=== PATIENT | male | born 1995 | race Hispanic/Latino ===

== ENCOUNTER 2022-10-04 20:19 | Emergency (ER) | payer OTHER ==
[~2022-10-04] VITALS: Ht 162.6 cm; Wt 68.0 kg
[2022-10-04 20:58] LABS: BASOPHILS % (AUTO) 0.4 % (0.0-5.0); EOSINOPHILS % (AUTO) 1.5 % (0.0-8.0); HEMATOCRIT 43.2 % (42-54); LYMPHOCYTES % (AUTO) 23.3 % (21.0-51.0); MEAN CORPUSCULAR HEMOGLOBIN 28.7 pg (27.0-33.0); MEAN CORPUSCULAR HGB CONC 34.5 g/dL (32.0-36.0); MEAN CORPUSCULAR VOLUME 83.1 fL (79-99); MONOCYTES % (AUTO) 5.8 % (3.0-13.0); NEUTROPHILS % (AUTO) 68.7 % (40.0-77.0); PLATELET COUNT (AUTO) 255 K/uL (130-400); RED CELL DISTRIBUTION WIDTH 12.8 % (11.0-15.5); WHITE BLOOD COUNT (AUTO) 10.2 K/uL (4.8-10.8)
[2022-10-04 20:59] LABS: APPEARANCE,URINE CLEAR (CLEAR); BILIRUBIN,URINE NEGATIVE (NEGATIVE); COLOR,URINE LIGHT-YELLOW (YELLOW); GLUCOSE, URINE (UA) NEGATIVE (NEGATIVE); KETONES,URINE NEGATIVE (NEGATIVE); LEUKOCYTE ESTERASE ,URINE NEGATIVE Leu/uL (NEGATIVE); NITRATE,URINE NEGATIVE (NEGATIVE); OCCULT BLOOD,URINE NEGATIVE (NEGATIVE); PH,URINE 6.5 (5.0-8.0); PROTEIN,URINE 20 mg/dL (NEGATIVE)
[2022-10-04 21:01] LABS: MUCUS,URINE RARE LPF (None Seen); RBC,URINE 0-1 /HPF (0-1); WBC,URINE 0-1 /HPF (0-1)
[2022-10-04 21:08] LABS: CREATININE 1.1 mg/dL (0.5-1.5); POTASSIUM 3.7 mmol/L (3.5-5.1)
[2022-10-04 21:13] LABS: ALBUMIN 4.4 g/dL (3.5-5.0); TOTAL PROTEIN, SERUM 7.8 g/dL (6.0-8.3)
[2022-10-04 22:31] VITALS: BP 117/63
== END 2022-10-04 23:11 | disposition home or self-care (01) ==
LOC: EDH 20:19
DX: K29.70 Gastritis, unspecified, without bleeding (principal)
CPT/HCPCS: 36415; 80053; 81001; 83690; 85025

== ENCOUNTER 2025-01-11 10:19 | Emergency (ER) | payer BC, OTHER ==
[~2025-01-11] VITALS: Ht 167.6 cm; Wt 59.0 kg
[~2025-01-11 10:19] MED LIST: CETI10TA87 PO; METH4TAB15 PO
[2025-01-11 11:02] LABS: BILIRUBIN,URINE NEGATIVE (NEGATIVE); COLOR,URINE YELLOW (YELLOW); GLUCOSE, URINE (UA) NEGATIVE (NEGATIVE); KETONES,URINE NEGATIVE (NEGATIVE); LEUKOCYTE ESTERASE ,URINE 500 Leu/uL (NEGATIVE); NITRATE,URINE NEGATIVE (NEGATIVE); OCCULT BLOOD,URINE SMALL (NEGATIVE); PROTEIN,URINE 70 mg/dL (NEGATIVE)
[2025-01-11 11:14] LABS: APPEARANCE,URINE CLOUDY (CLEAR)
[2025-01-11 11:15] LABS: ADD UA MICROSCOPIC YES
[2025-01-11 11:16] LABS: BACTERIA,URINE FEW /HPF (None Seen); MUCUS,URINE RARE LPF (None Seen); RBC,URINE 26-50 /HPF (0-1); WBC,URINE TNTC /HPF (0-1)
[2025-01-11] MEDS ORDERED: DOXY100C5 PO (11:29)
--- NOTE | 2025-01-11 11:29 | ERN ---
ED Note History of Present Illness Stated Complaint: DYSURIA, FREQUENCY Chief Complaint: Painful Urination Time Seen by MD: 10:36 Dictation: 29-year-old male presents to the ED for evaluation of dysuria onset three days ago. Patient reports urinary frequency, but denies any fever, back pain or any other associated symptoms at this time. Patient is concerned for an STD. Allergies: Coded Allergies: No Known Drug Allergies (Unverified Allergy, Unknown, 10/04/22) Home Meds Active Scripts Doxycycline Hyclate (Doxycycline Hyclate) 100 Mg Capsule, 1 CAP PO BID for 10 Days, #20 CAP 0 Refills Prov:GRACE HERNANDEZ MD 01/11/25 Methylprednisolone (Methylprednisolone) 4 Mg Tab.ds.pk, 4 MG PO DAILY, #1 PACK as per dose pack instructions Prov:SAHRA OG 08/14/23 Cetirizine HCl (Cetirizine HCl) 10 Mg Tab.chew, 10 MG PO DAILY for 7 Days, #7 TAB.CHEW 1 Refill Prov:SAHRA OG 08/14/23 Past Medical History Past Medical History: No Pertinent History Surgical History: None Review of System Dictation Constitutional: Negative for fever,chills, and weight loss Eyes: Negative for injury, pain,redness, and discharge ENT: Negative for injury,pain or swelling Cardiovascular: Negative for chest pain, palpitations, and edema Respiratory: Negative for shortness of breath, cough, and wheezing, Abdomen/GI: Negative for abdominal pain, nausea, vomiting, diarrhea, and constipation Back: Negative for injury and pain : positive for dysuria, urinary frequency MS/Extremity: Negative for injury and deformity Skin: Negative for rash, and discoloration Neuro: Negative for headache, weakness, numbness, tingling, and seizure Psych: Negative for suicide ideation, homicidal ideation, and hallucinations Initial Vital Sign VS Vital Signs Date Time Temp Pulse Resp B/P (MAP) Pulse Ox O2 Delivery O2 Flow Rate FiO2 01/11/25 10:20 97.9 84 16 140/81 100 Room Air 0 Physical Exam Dictation General: awake, alert, NAD Head/Face: Normocephalic, atraumatic Eyes: PERRL, EOMI, vision at baseline ENT: oral cavity clear, TMs clear, no signs of infection Neck: Trachea midline, supple, no nuchal rigidity Cardiovascular: RRR, normal S1/S2, No MRGs, no JVD Respiratory: CTAB, no respiratory distress, No rales or wheezes Abdomen: Soft, non-tender, non-distended, normal bowel sounds, no guarding or rebound. Skin: Warm, dry, normal turgor, no rash MS/Extremity: Pulses equal, no cyanosis, neurovascular intact, FROM Neuro: COAx4, GCS 15, strength 5/5, CN 2-12 intact, normal cerebellar exam, normal gait, Psych: Normal behavior, mood, and affect normal Results (Laboratory/Radiology) Laboratory/Radiology Laboratory Tests Test 01/11/25 10:35 Urine Color YELLOW (YELLOW) Urine Appearance CLOUDY (CLEAR) H Urine pH 7.0 (5.0-8.0) Urine Specific [place] 1.028 (1.001-1.031) Urine Protein 70 mg/dL (NEGATIVE) H Urine Glucose (UA) NEGATIVE mg/dL (NEGATIVE) Urine Ketones NEGATIVE mg/dL (NEGATIVE) Urine Occult Blood SMALL (NEGATIVE) H Urine Nitrate NEGATIVE (NEGATIVE) Urine Bilirubin NEGATIVE mg/dL (NEGATIVE) Urine Urobilinogen 2.0 mg/dL (0.2-1.0) H Urine Leukocyte Esterase 500 Noelle/uL (NEGATIVE) H Urine RBC 26-50 /HPF (0-1) H Urine WBC TNTC /HPF (0-1) H Urine Bacteria FEW /HPF (None Seen) Labs Reviewed?: Yes ED Course ED Course Orders Procedure Category Date Status Time Urinalysis Profile LAB 01/11/25 Complete 10:37 Azithromycin PHA 01/11/25 Complete (Zithromax) 11:00 Ceftriaxone 1g Vial PHA 01/11/25 Complete (Rocephine 1g Inj) 11:00 Ondansetron Odt 4mg PHA 01/11/25 Complete Tab (Zofran 4mg Odt) 11:00 Culture Urine JAKE 01/11/25 Logged 11:15 Neisseria Gonorrhoeae LAB 01/11/25 Logged FAB 11:25 Chlamydia Dna LAB 01/11/25 Logged N.A.Amplify 11:25 Current Medications Medications (Trade) Dose Ordered Sig/Hermelinda Route PRN Reason Start Time Stop Time Status Last Admin Dose Admin Azithromycin (Zithromax) 1,000 mg ONCE ONCE PO 01/11/25 11:00 01/11/25 11:01 DC Ceftriaxone Sodium (ROCEphine 1G INJ) 1 gm ONCE ONCE IM 01/11/25 11:00 01/11/25 11:01 DC Ondansetron HCl (zoFRAN 4MG ODT) 4 mg ONCE ONCE SL 01/11/25 11:00 01/11/25 11:01 DC Vital Signs Date Time Temp Pulse Resp B/P (MAP) Pulse Ox O2 Delivery O2 Flow Rate FiO2 01/11/25 10:20 97.9 84 16 140/81 100 Room Air 0 Medical Decision Making MDM MDM: Differential diagnosis: UTI, STD Risk of complication and/or morbidity or mortality of patient management: None Medications-Per medication reconciliation Need for hospitalization: Patient does not meet criteria for hospitalization. Need for emergency major/minor surgery: No There are no social concerns with this patient. Prescription drug management Prescriptions will include symptomatic care I independently interpreted the test that were performed, results were reviewed by me and considered findings on radiology if ordered. DX & DISP Disposition: Discharge Departure Impression: Primary Impression: UTI (urinary tract infection) Condition: Stable Scripts Doxycycline Hyclate (Doxycycline Hyclate) 100 Mg Capsule 1 CAP PO BID for 10 Days, #20 CAP 0 Refills Prov: GRACE HERNANDEZ MD 01/11/25 Referrals: SELF,REFERRAL (PCP) GRACE HERNANDEZ MD Jan 11, 2025 11:29
[2025-01-11 13:30] VITALS: BP 122/65; PULSE 77; RESP 18; TEMP 97.9; O2SAT 98
[2025-01-11] MEDS: AZITHROMYCIN 250 MG TABLET PO ONE (13:41)
[2025-01-11] MEDS: cefTRIAXone 1G VIAL IM ONE (13:42)
[2025-01-11] MEDS: ondanSETRON ODT 4MG TAB SL ONE (13:42)
--- NOTE | 2025-01-12 15:20 | NUR ---
UPON REVIEW OF CULTURE RESULTS BY DR. HERNANDEZ, NO FURTHER RX IS NEEDED.
== END 2025-01-11 13:54 | disposition home or self-care (01) ==
LOC: EDH 10:19
DX: N39.0 Urinary tract infection, site not specified (principal); Z79.52 Long term (current) use of systemic steroids
CPT/HCPCS: 99284; 87086; 87491; 87591; 81001; 96372; J0696